=== PATIENT | female | born 1990 | race Asian ===

== ENCOUNTER 2018-10-15 12:20 | Emergency (ER) | payer OTHER ==
[~2018-10-15] VITALS: Ht 165.1 cm; Wt 87.5 kg
[2018-10-15 14:30] VITALS: BP 128/82; TEMP 99.3
== END 2018-10-15 14:25 | disposition home or self-care (01) ==
LOC: ED 12:20
PROVIDERS: Family Medicine
DX: S39.011A Strain of muscle, fascia and tendon of abdomen, initial encounter (principal); Z3A.09 9 weeks gestation of pregnancy
CPT/HCPCS: 80053; 81000; 84702

== ENCOUNTER 2018-10-23 20:14 | Outpatient (CLI) | payer OTHER | END 2018-10-23 20:18 | disposition short-term general hospital (02) | LOC: AMB 20:14 | DX: N93.8 Other specified abnormal uterine and vaginal bleeding (principal) | CPT/HCPCS: A0425; A0429 ==

== ENCOUNTER 2018-10-23 20:29 | Emergency (ER) | payer OTHER ==
[~2018-10-23] VITALS: Ht 165.1 cm; Wt 87.5 kg
[2018-10-23 21:16] LABS: PLATELET COUNT 312 K/uL (152-353)
[2018-10-23 21:35] LABS: POTASSIUM 3.5 mmol/L (3.6-5.2)
[2018-10-24 01:02] VITALS: BP 111/67; TEMP 98
== END 2018-10-24 01:09 | disposition short-term general hospital (02) ==
LOC: ED 20:29
PROVIDERS: Family Medicine
DX: O03.6 Delayed or excessive hemorrhage following complete or unspecified spontaneous abortion (principal); Z3A.10 10 weeks gestation of pregnancy
CPT/HCPCS: 36415; 80053; 84702; 85027; 96361; 96365; 96374; 96375; 99284; J2175; J2405

== ENCOUNTER 2018-10-24 01:10 | Outpatient (CLI) | payer OTHER | END 2018-10-24 01:38 | disposition short-term general hospital (02) | LOC: AMB 01:10 | DX: O03.6 Delayed or excessive hemorrhage following complete or unspecified spontaneous abortion (principal); Z3A.10 10 weeks gestation of pregnancy | CPT/HCPCS: A0425; A0427 ==

== ENCOUNTER 2020-12-13 12:22 | Emergency (ER) | payer OTHER ==
[~2020-12-13] VITALS: Ht 165.1 cm; Wt 98.9 kg
[2020-12-13 12:28] VITALS: BP 121/83; TEMP 97.2
[2020-12-13 13:03] LABS: PLATELET COUNT 232 K/uL (152-353)
== END 2020-12-13 14:30 | disposition home or self-care (01) ==
LOC: ED 12:22
PROVIDERS: Family Medicine
DX: M25.561 Pain in right knee (principal)
CPT/HCPCS: 80053; 84550; 85027; 96372; 99283; J1885

== ENCOUNTER 2021-03-21 20:45 | Emergency (ER) | payer OTHER ==
[~2021-03-21] VITALS: Ht 167.6 cm; Wt 102.1 kg
[2021-03-21 21:56] LABS: PLATELET COUNT 240 K/uL (152-353)
[2021-03-21 22:10] LABS: POTASSIUM 3.5 mmol/L (3.6-5.2)
[2021-03-21 23:40] VITALS: BP 138/89; TEMP 98
== END 2021-03-21 23:40 | disposition home or self-care (01) ==
LOC: ED 20:45
PROVIDERS: Hospitalist
DX: K29.70 Gastritis, unspecified, without bleeding (principal)
CPT/HCPCS: 80053; 81000; 81025; 83690; 85008; 85027; 96360; 96375; 99284; J2405